=== PATIENT | male | born 1950 | race Caucasian/White ===

== ENCOUNTER → 2020-01-21 | Outpatient (CLI) | payer MEDICARE, OTHER ==
--- NOTE | 2020-01-21 12:03 | XR ---
EXAMINATION TYPE: XR Hip Complete RT DATE OF EXAM: 01/21/2020 COMPARISON: NONE HISTORY: Pain TECHNIQUE: 2 views submitted FINDINGS: Exam limited by extensive overlying artifact. There is no evidence of erosive change or acute fracture. Diffuse osteopenia. Soft tissue artifact on the frontal view is suspected rather than sclerotic change involving the proximal femur. A concentri c narrowing of the hip joint with hypertrophic change of the acetabulum. IMPRESSION: 1. Limited exam demonstrates no gross evidence of acute fracture or dislocation. No destructive freire es seen to suggest osteomyelitis. 2. Diffuse osteopenia. 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
[2020-01-21 20:14] LABS: C Reactive Protein <0.4 mg/dL (0.0-0.8)
== END | disposition home or self-care (01) ==
LOC: LABWHC1 10:29
PROVIDERS: ATTEND Family Medicine
DX: L89.313 Pressure ulcer of right buttock, stage 3 (principal); G82.21 Paraplegia, complete; M85.80 Other specified disorders of bone density and structure, unspecified site
CPT/HCPCS: 36415; 73502; 84134; 85652; 86140

== ENCOUNTER 2020-03-28 20:02 | Emergency (ER) | payer MEDICARE, OTHER ==
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
[2020-03-28 20:45] LABS: Basophils % (A) 1 %; Eosinophils # (A) 0.2 k/uL (0-0.7); Eosinophils % (A) 3 %; HCT 47.8 % (39.0-53.0); HGB 15.2 gm/dL (13.0-17.5); Lymphocytes # (A) 1.1 k/uL (1.0-4.8); Lymphocytes % (A) 24 %; MCH 30.1 pg (25.0-35.0); MCHC 31.8 g/dL (31.0-37.0); MCV 94.7 fL (80.0-100.0); Monocytes # (A) 0.5 k/uL (0-1.0); Monocytes % (A) 11 %; Neutrophils # (A) 2.7 k/uL (1.3-7.7); Neutrophils % (A) 58 %; Platelet Count 226 k/uL (150-450); RBC 5.05 m/uL (4.30-5.90); RDW 14.4 % (11.5-15.5); WBC 4.6 k/uL (3.8-10.6)
[2020-03-28 20:48] LABS: ALT 13 U/L (4-49); AST 32 U/L (17-59); African American GFR (CKD) >90 (>60 ml/min/1.73 sqM); Albumin 3.8 g/dL (3.5-5.0); Alkaline Phosphatase 83 U/L (38-126); Anion Gap 7 mmol/L; Blood Urea Nitrogen 18 mg/dL (9-20); Calcium 8.9 mg/dL (8.4-10.2); Carbon Dioxide 24 mmol/L (22-30); Chloride 108 mmol/L (98-107); Glucose 103 mg/dL (74-99); Non-African American GFR(CKD) >90 (>60 ml/min/1.73 sqM); Sodium 139 mmol/L (137-145); Total Bilirubin 0.4 mg/dL (0.2-1.3); Total Protein 6.7 g/dL (6.3-8.2)
[2020-03-28 20:53] LABS: Potassium 4.5 mmol/L (3.5-5.1)
[2020-03-28 22:32] VITALS: BP 131/98; PULSE 87; RESP 18; TEMP 98.1
== END 2020-03-28 22:32 | disposition home or self-care (01) ==
LOC: EC 20:02
DX: L89.319 Pressure ulcer of right buttock, unspecified stage (principal); L89.219 Pressure ulcer of right hip, unspecified stage; Z87.891 Personal history of nicotine dependence; G82.20 Paraplegia, unspecified; Z87.828 Personal history of other (healed) physical injury and trauma
CPT/HCPCS: 36415; 80053; 85025; 99283

== ENCOUNTER 2020-08-28 21:52 | Emergency (ER) | payer MEDICARE, OTHER ==
[2020-08-28] MEDS ORDERED: PIPERACILLIN-TAZOBACTAM 3.375 GM in SODIUM CHLORIDE 0.9% 100 ML IVPB STA (22:04)
[2020-08-28] MEDS ORDERED: SODIUM CHLORIDE 0.9% 1,000 ML IV ONE (22:16)
[2020-08-28] MEDS ORDERED: SODIUM CHLORIDE 0.9% 1,000 ML IV SCH (22:30)
[2020-08-28 22:46] VITALS: RESP 18
[2020-08-28 23:07] LABS: Basophils % (A) 0 %; Eosinophils # (A) 0.1 k/uL (0-0.7); Eosinophils % (A) 1 %; HCT 46.4 % (39.0-53.0); HGB 15.3 gm/dL (13.0-17.5); Lymphocytes # (A) 1.7 k/uL (1.0-4.8); Lymphocytes % (A) 16 %; MCH 30.5 pg (25.0-35.0); MCHC 32.9 g/dL (31.0-37.0); MCV 92.6 fL (80.0-100.0); Mean Platelet Volume 7.4; Monocytes # (A) 0.6 k/uL (0-1.0); Monocytes % (A) 6 %; Neutrophils # (A) 7.9 k/uL (1.3-7.7); Neutrophils % (A) 75 %; Platelet Count 253 k/uL (150-450); RBC 5.01 m/uL (4.30-5.90); RDW 13.2 % (11.5-15.5); WBC 10.5 k/uL (3.8-10.6)
[2020-08-28 23:08] VITALS: BP 128/82; PULSE 75; TEMP 98.7
[2020-08-28 23:20] LABS: ALT 20 U/L (4-49); AST 32 U/L (17-59); African American GFR (CKD) >90 (>60 ml/min/1.73 sqM); Albumin 3.7 g/dL (3.5-5.0); Alkaline Phosphatase 94 U/L (38-126); Anion Gap 10 mmol/L; Blood Urea Nitrogen 17 mg/dL (9-20); Calcium 9.1 mg/dL (8.4-10.2); Carbon Dioxide 22 mmol/L (22-30); Chloride 105 mmol/L (98-107); Glucose 102 mg/dL (74-99); Non-African American GFR(CKD) >90 (>60 ml/min/1.73 sqM); Potassium 4.2 mmol/L (3.5-5.1); Sodium 137 mmol/L (137-145); Total Bilirubin 0.5 mg/dL (0.2-1.3); Total Protein 6.7 g/dL (6.3-8.2)
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
== END 2020-08-29 00:11 | disposition home or self-care (01) ==
LOC: EC 21:52
DX: L03.115 Cellulitis of right lower limb (principal); Z87.891 Personal history of nicotine dependence
CPT/HCPCS: 36415; 80053; 83605; 85025; 87040; 99283; 96365; 96361; J2543

== ENCOUNTER → 2020-09-11 | Outpatient (CLI) | payer MEDICARE, OTHER ==
--- NOTE | 2020-09-12 07:31 | MR ---
EXAMINATION TYPE: MR shoulder RT wo con DATE OF EXAM: 09/11/2020 COMPARISON: None. HISTORY: Rt shoulder pain, impingement, rotator cuff tendinitis, decreased range of motion, possible rotator cuff tear. TECHNIQUE: Multiplanar, multisequence imaging of the right shoulder is performed without contrast. FINDINGS: Rotator Cuff: Complete full-thickness retracted tears of the supraspinatus and infraspinatus tendons to level of acromioclavicular joint. There is moderate generalized fat replaced atrophy of the muscle bulk. Subscapularis tendon is thickened with increased signal with some partial tearing of distal fi bers. [id number] generalized atrophy of muscle bulk. Acromioclavicular Joint: Moderate to severe narrowing with mild to moderate spurring and [id number]-[id number] rate superior capsular hypertrophy. Glenohumeral Joint: High riding humeral head with moderate superior narrowing. Small inferior spurrin g. Small joint effusion. Labrum: The superior labrum has irregular increased signal, suspected tear. Biceps Tendon: The long head of biceps is in normal location within bicipital groove. Intracapsular p ortions difficult to visualize in entirety. Bone marrow signal: No focal abnormal marrow signal is appreciated. Other: No additional significant abnormality is appreciated. IMPRESSION: Full-thickness retracted tears of the supraspinatus and infraspinatus tendons. High ridin g humeral head suggesting underlying instability. Fairly moderate muscular atrophy suggests subacute or chronic in age. There is partial tearing of the distal subscapularis tendon with muscular atrophy.
== END | disposition home or self-care (01) ==
LOC: RADMRIMAIN 10:49
PROVIDERS: ATTEND Orthopaedic Surgery Sports Medicine
DX: M75.121 Complete rotator cuff tear or rupture of right shoulder, not specified as traumatic (principal); M62.50 Muscle wasting and atrophy, not elsewhere classified, unspecified site; M25.511 Pain in right shoulder; M75.41 Impingement syndrome of right shoulder

== ENCOUNTER → 2020-10-10 | Outpatient (CLI) | payer MEDICARE, OTHER ==
--- NOTE | 2020-10-12 12:36 | MR ---
MR pelvis without and with contrast HISTORY: Pressure ulcer Multiplanar multisequence and postcontrast images obtained through the pelvis following 7.[address] IV Abnormal signal noted in the inferior right gluteal region, intermediate on T1, increased and T2-weig hted sequences extending into the deep soft tissues to the level of the ischial tuberosity on the rig ht and posterior greater trochanter region, focal skin defect is noted posterior to the greater troch anter. The underlying bone marrow signal is maintained. No abnormal fluid collection. Osteophytic change is present in the right hip. The left elbow is shows distortion, effusion, remodel ing, abnormal thickening of the ileum. Osteoarthritic changes are present. Proximal left femur appare ntly discontinuous IMPRESSION: Decubitus ulcer shows no underlying osteomyelitis or abscess. There is distortion of the left hemipelvis and left proximal lower extremity, correlate for appropriate history, abnormal left f emur, consider correlation with plain film
== END | disposition home or self-care (01) ==
LOC: RADMRIMAIN 07:54
PROVIDERS: ATTEND Nurse Practitioner Family
DX: L89.312 Pressure ulcer of right buttock, stage 2 (principal); G82.20 Paraplegia, unspecified; R10.2 Pelvic and perineal pain
CPT/HCPCS: 72197; A9585

== ENCOUNTER 2021-04-02 12:21 | Inpatient (IN) | payer MEDICARE, OTHER ==
[2021-04-02] MEDS ORDERED: SODIUM CHLORIDE 0.9% 500 ML 250 ML IV STA (13:40)
[2021-04-02] MEDS ORDERED: SODIUM CHLORIDE 0.9% 2,000 ML IV STA (13:40)
[2021-04-02] MEDS ORDERED: cefTRIAXone IN SWFI 1,000 MG/10 ML SYRINGE IVP STA (13:40)
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
[2021-04-02 14:12] LABS: Basophils % (A) 0 %; Eosinophils # (A) 0.1 k/uL (0-0.7); Eosinophils % (A) 1 %; HCT 47.4 % (39.0-53.0); HGB 15.2 gm/dL (13.0-17.5); Lymphocytes # (A) 0.9 k/uL (1.0-4.8); Lymphocytes % (A) 7 %; MCH 29.7 pg (25.0-35.0); MCV 92.7 fL (80.0-100.0); Mean Platelet Volume 7.8; Monocytes # (A) 0.6 k/uL (0-1.0); Monocytes % (A) 4 %; Neutrophils # (A) 11.6 k/uL (1.3-7.7); Neutrophils % (A) 88 %; Platelet Count 270 k/uL (150-450); RBC 5.12 m/uL (4.30-5.90); RDW 14.3 % (11.5-15.5); WBC 13.2 k/uL (3.8-10.6)
[2021-04-02 14:44] LABS: ALT 21 U/L (4-49); AST 32 U/L (17-59); African American GFR (CKD) >90 (>60 ml/min/1.73 sqM); Albumin 4.1 g/dL (3.5-5.0); Alkaline Phosphatase 102 U/L (38-126); Anion Gap 8 mmol/L; Blood Urea Nitrogen 18 mg/dL (9-20); C Reactive Protein 4.1 mg/dL (<1.0); Calcium 9.1 mg/dL (8.4-10.2); Carbon Dioxide 24 mmol/L (22-30); Chloride 104 mmol/L (98-107); Glucose 93 mg/dL (74-99); Non-African American GFR(CKD) >90 (>60 ml/min/1.73 sqM); Potassium 3.9 mmol/L (3.5-5.1); Sodium 136 mmol/L (137-145); Total Bilirubin 0.9 mg/dL (0.2-1.3); Total Protein 7.2 g/dL (6.3-8.2)
[2021-04-02] MEDS ORDERED: NALOXONE 0.4 MG/ML 1 ML VIAL IV PRN (15:49)
[2021-04-02] MEDS ORDERED: ALPRAZolam 0.25 MG TAB PO PRN (19:21)
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
[2021-04-02] MEDS: ALPRAZolam 0.25 MG TAB PO PRN (21:12)
[2021-04-02] MEDS: SODIUM CHLORIDE 0.9% 1,000 ML IV SCH (21:13)
[2021-04-03] MEDS ORDERED: VANCOMYCIN IV PER PHARMACY 1 EACH MISC MISCELLANE PRN (00:29)
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
[2021-04-03] MEDS ORDERED: VANCOMYCIN 1,500 MG in SODIUM CHLORIDE 0.9% 250 ML IVPB ONE (01:00)
[2021-04-03 01:25] LABS: Appearance,Urine Clear (Clear); Bilirubin,Urine Negative (Negative); Blood,Urine Negative (Negative); Color,Urine Yellow; Glucose,Urine (UA) Negative (Negative); Ketones,Urine Negative (Negative); Leukocyte Esterase,Urine Moderate (Negative); Mucus,Urine Rare /hpf; Nitrite,Urine Negative (Negative); PH, Urine 5.5 (5.0-8.0); Protein,Urine Negative (Negative); RBC,Urine 2 /hpf (0-5); Specific Gravity,Urine 1.018 (1.001-1.035); Squamous Epithelial Cell,Urine <1 /hpf (0-4); Urobilinogen,Urine <2.0 mg/dL (<2.0); WBC,Urine 21 /hpf (0-5)
[2021-04-03 06:56] LABS: Basophils % (A) 0 %; Eosinophils % (A) 0 %; HCT 40.5 % (39.0-53.0); HGB 13.1 gm/dL (13.0-17.5); Lymphocytes % (A) 10 %; MCH 29.7 pg (25.0-35.0); MCHC 32.3 g/dL (31.0-37.0); Mean Platelet Volume 7.3; Monocytes # (A) 0.5 k/uL (0-1.0); Monocytes % (A) 6 %; Neutrophils # (A) 8.2 k/uL (1.3-7.7); Neutrophils % (A) 82 %; Platelet Count 219 k/uL (150-450); RDW 14.7 % (11.5-15.5)
[2021-04-03] MEDS ORDERED: NON FORMULARY DRUG (Juven Packet 1 PACKET Packet) PO SCH (07:30)
[2021-04-03 07:50] LABS: African American GFR (CKD) >90 (>60 ml/min/1.73 sqM); Anion Gap 6 mmol/L; Blood Urea Nitrogen 10 mg/dL (9-20); Calcium 8.3 mg/dL (8.4-10.2); Carbon Dioxide 23 mmol/L (22-30); Chloride 108 mmol/L (98-107); Glucose 107 mg/dL (74-99); Non-African American GFR(CKD) >90 (>60 ml/min/1.73 sqM); Potassium 3.7 mmol/L (3.5-5.1); Sodium 137 mmol/L (137-145)
[2021-04-03] MEDS: SODIUM CHLORIDE 0.9% 1,000 ML IV SCH ×2 (08:05→20:25)
[2021-04-03] MEDS: MULTIVITAMINS, THERA 1 EACH TAB PO SCH (08:09)
[2021-04-03] MEDS: SYMBICORT 80-4.5 MCG INHALER INHALATION SCH (09:29)
[2021-04-03] MEDS: VANCOMYCIN 1,250 MG in SODIUM CHLORIDE 0.9% 250 ML IVPB SCH ×2 (10:03→18:11)
[2021-04-03 11:12] VITALS: BMI 21.4
[2021-04-03] MEDS: CEFEPIME 2 GM in SODIUM CHLORIDE 0.9% 100 ML IVPB SCH ×2 (16:35→22:53)
--- NOTE | 2021-04-03 17:07 | PN ---
PROGRESS NOTE DATE OF SERVICE: 04/03/2021 REASON FOR FOLLOWUP: Left gluteal cellulitis. INTERVAL HISTORY: The patient is afebrile. She is breathing comfortably. No sensation down to the gluteal area. Has no pain. No chest pain, shortness of breath or cough. No abdominal pain or diarrhea. PHYSICAL EXAMINATION: Blood pressure 108/67, pulse of 82, temperature is 97.9. He is 98% on room air. GENERAL DESCRIPTION: General description is an elderly male lying in bed in no distress. RESPIRATORY SYSTEM: Unlabored breathing. Clear to auscultation anteriorly. HEART: S1, S2. Regular rate and rhythm. ABDOMEN: Soft. No tenderness. Left gluteal area swelling and redness have slightly increased compared to yesterday. LABS: Hemoglobin is 13.8, white count 10.0, BUN of 10, creatinine 0.52. Blood culture negative. Culture so far pending. DIAGNOSTIC IMPRESSION AND PLAN: Patient with left gluteal cellulitis and concern for possible related to Gram-positive skin char. White count improved. Slightly was noticed. Area will be marked. Cefepime will be added and antibiotic adjusted based on clinical response and culture. Continue supportive care. MMODL / IJN: [id number] /
[2021-04-03] MEDS: ACETAMINOPHEN TAB 325 MG TAB PO PRN (17:19)
[2021-04-03] MEDS ORDERED: LORazepam 2 MG/ML INJ IV STA (17:30)
--- NOTE | 2021-04-03 19:33 | PN ---
PROGRESS NOTE DATE OF SERVICE: 04/03/2021 This 70-year-old gentleman, admitted with a left gluteal decubitus ulcer and possible abscess, also had an episode of tremors, shaking chills and features of sepsis. The patient was started on broad-spectrum IV antibiotics. White count was elevated to 13.2 yesterday. Hematology is following the patient closely. Past medical history reviewed. REVIEW OF SYSTEMS: CARDIOVASCULAR SYSTEM: No angina. RESPIRATION: As mentioned earlier. GI: As mentioned earlier. : No dysuria. NERVOUS SYSTEM: Unchanged. CURRENT MEDICATIONS: Reviewed. They include Tylenol, Xanax, Symbicort, cefepime, multivitamins, Narcan, vancomycin. PHYSICAL EXAMINATION: Patient is alert, oriented x3. Pulse 82, blood pressure 108/67, respirations 17, temperature 97.8, pulse ox 88% on room air. Temperature is 100.8. HEENT: Conjunctivae normal. Oral mucosa moist. NECK: No jugular venous distention. No carotid bruit. No lymph node enlargement. CARDIOVASCULAR: S1, S2 muffled. RESPIRATION: Breath sounds diminished at the bases. A few scattered rhonchi. ABDOMEN: Soft, non-tender. LEGS: No edema. No swelling. Right buttock ulcer and edema and swelling also present. NERVOUS SYSTEM: T3-4 paraplegia. ASSESSMENT: 1. Acute left gluteal decubitus ulcer and cellulitis, grade 1-2, with possible subcutaneous abscess, failure of outpatient treatment, sepsis, present on admission. 2. Increased white count. 3. Previous decubitus. 4. Hyponatremia. 5. History of T3-4 paraplegia. 6. History of chronic decubitus ulcer. 7. History of bowel resection. 8. History of nicotine dependence. 9. Increased CRP. 10.FULL CODE. RECOMMENDATIONS AND DISCUSSION: In this 70-year-old gentleman who presented with multiple complex medical issues, we will monitor the patient closely, continue the current medications, continue symptomatic treatment. We will obtain another set of cultures. Continue the antibiotics. Surgical evaluation for possible incision and drainage. Guarded prognosis. Further recommendations to follow. Obtain urine culture also. Lactic acid also has been sought. See orders for further details. The prognosis is extremely guarded because of multiple complex medical issues. MMODL / IJN: [id number] /
[2021-04-04] MEDS: VANCOMYCIN 1,250 MG in SODIUM CHLORIDE 0.9% 250 ML IVPB SCH ×2 (02:54→10:03)
[2021-04-04] MEDS: SYMBICORT 80-4.5 MCG INHALER INHALATION SCH (07:42)
[2021-04-04] MEDS: MULTIVITAMINS, THERA 1 EACH TAB PO SCH (08:32)
[2021-04-04] MEDS: CEFEPIME 2 GM in SODIUM CHLORIDE 0.9% 100 ML IVPB SCH ×2 (08:32→15:26)
[2021-04-04] MEDS: SODIUM CHLORIDE 0.9% 1,000 ML IV SCH (08:32)
[2021-04-04] MEDS: ACETAMINOPHEN TAB 325 MG TAB PO PRN ×3 (08:35→22:24)
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
[2021-04-04] MEDS ORDERED: IOPAMIDOL CONTRAST (ORAL USE) VIAL PO PRN (17:26)
[2021-04-04] MEDS: VANCOMYCIN 1,500 MG in SODIUM CHLORIDE 0.9% 250 ML IVPB SCH (17:42)
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
--- NOTE | 2021-04-04 18:59 | PN ---
PROGRESS NOTE DATE OF SERVICE: 04/04/2021 This 70-year-old gentleman who was admitted with acute left gluteal cellulitis and abscess, had features of sepsis. The patient had significant shaking shivers yesterday. The patient also had MRSA infection from the culture. No chest pain. No palpitations. No fever. PHYSICAL EXAMINATION: Alert and oriented times three. Pulse 66, blood pressure 127/58. Respirations 17. Temperature 97.9, pulse ox 94% on room air. HEENT: Conjunctivae normal. NECK: No JVD. CARDIOVASCULAR: S1, S2 muffled. LUNGS: Breath sounds diminished in the bases. Scattered rhonchi and crackles. ABDOMEN: Soft. Nontender. LEGS are no edema. No swelling. NERVOUS SYSTEM: No focal deficits. LABORATORY DATA: CBC within normal limits. Sodium 130. Potassium 3.7. C-reactive protein 16. ASSESSMENT: 1. Acute left gluteal decubitus ulcer and cellulitis grade 1-2 with possible subcutaneous abscess with sinus, failure of outpatient treatment, sepsis, present on admission with MRSA. 2. Increased WBC. 3. Previous decubitus. 4. Hyponatremia. 5. History of T3, T4 paraplegia. 6. History of chronic decubitus ulcer. 7. History of bowel resection. 8. History of nicotine dependence. 9. Increased CRP. 10.FULL CODE. RECOMMENDATIONS AND DISCUSSION: I recommend to continue current medications, management and symptomatic treatment. I recommend continue the current medications. Continue the antibiotics. Surgical evaluation noted. I would also recommend CT abdomen and pelvis also. Closely follow with Infectious Disease. The patient is on cefepime and vancomycin at this time. Further recommendations to follow. MMODL / IJN: [id number] /
--- NOTE | 2021-04-04 23:38 | PN ---
PROGRESS NOTE DATE OF SERVICE: 04/04/2021 REASON FOR FOLLOWUP: Left gluteal cellulitis and wound infection. INTERVAL HISTORY: The patient is afebrile. The patient is breathing comfortably. Denies any chest pain. No shortness of breath. No abdominal pain. lower gluteal area has no pain. PHYSICAL EXAMINATION: Blood pressure 113/68 with a pulse of 77, temperature 98.2. She is 97% on room air. General description is an elderly male lying in bed in no distress. Respiratory system: Unlabored breathing, clear to auscultation anteriorly. Heart S1, S2. Regular rate and rhythm. Abdomen soft, no tenderness. Left gluteal area swelling and redness has slightly decreased. LABS: Wound culture showing presumptive MRSA. DIAGNOSTIC IMPRESSION AND PLAN: Patient with left gluteal cellulitis secondary to MRSA with concern for worsening cellulitis. CT was obtained which did not show any drainable abscess. Patient at this time to continue with vancomycin and discontinue cefepime and monitor clinical course closely. MMODL / IJN: [id number] /
[2021-04-05] MEDS: SODIUM CHLORIDE 0.9% 1,000 ML IV SCH ×2 (01:26→17:41)
[2021-04-05] MEDS: VANCOMYCIN 1,500 MG in SODIUM CHLORIDE 0.9% 250 ML IVPB SCH ×3 (01:27→17:41)
[2021-04-05 05:58] LABS: Basophils % (A) 0 %; Eosinophils # (A) 0.2 k/uL (0-0.7); Eosinophils % (A) 2 %; HCT 38.7 % (39.0-53.0); HGB 12.9 gm/dL (13.0-17.5); Lymphocytes % (A) 12 %; MCH 30.3 pg (25.0-35.0); MCHC 33.3 g/dL (31.0-37.0); Mean Platelet Volume 8.2; Monocytes # (A) 0.4 k/uL (0-1.0); Monocytes % (A) 5 %; Neutrophils # (A) 6.7 k/uL (1.3-7.7); Neutrophils % (A) 80 %; Platelet Count 233 k/uL (150-450); RBC 4.25 m/uL (4.30-5.90); RDW 14.7 % (11.5-15.5); WBC 8.4 k/uL (3.8-10.6)
[2021-04-05 06:22] LABS: African American GFR (CKD) >90 (>60 ml/min/1.73 sqM); Anion Gap 8 mmol/L; Blood Urea Nitrogen 10 mg/dL (9-20); Calcium 8.2 mg/dL (8.4-10.2); Carbon Dioxide 22 mmol/L (22-30); Chloride 110 mmol/L (98-107); Glucose 97 mg/dL (74-99); Non-African American GFR(CKD) >90 (>60 ml/min/1.73 sqM); Potassium 3.9 mmol/L (3.5-5.1); Sodium 140 mmol/L (137-145)
[2021-04-05] MEDS: SYMBICORT 80-4.5 MCG INHALER INHALATION SCH (07:30)
[2021-04-05] MEDS: MULTIVITAMINS, THERA 1 EACH TAB PO SCH (09:24)
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
--- NOTE | 2021-04-05 14:59 | P.PN ---
Subjective Progress Note Date: 04/05/21 CHIEF COMPLAINT: Pressure ulcer left buttocks HISTORY OF PRESENT ILLNESS: Left buttocks ulcer. Improving with antibiotics. Patient is paraplegic. Does not have pain sensation. Cultures are positive for MRSA. Computed tomography scan had no drainable fluid. WBC is 8.4 patient tolerating regular diet. Afebrile. PHYSICAL EXAM: VITAL SIGNS: Reviewed. GENERAL: Well-developed in no acute distress. HEENT: No sclera icterus. Extraocular movements grossly intact. Moist buccal mucosa. Head is atraumatic, normocephalic. ABDOMEN: Soft. Nondistended. Nontender. NEUROLOGIC: Alert and oriented. Cranial nerves II through XII grossly intact. Skin: Left buttocks ulceration or erythema around ulcer is decreasing. No area of induration or fluctuation. Minimal drainage on dressing ASSESSMENT: 1. Infected left buttocks decubitus ulcer PLAN: -No surgical intervention planned -Continue local wound care per wound care nurse practitioner -Continue antibiotics per ID -Continue supportive care Physician Sales Ledger Administrator note has been reviewed by physician. Signing provider agrees with the documented findings, assessment, and plan of care. Objective - Vital Signs Vital signs: Vital Signs Temp 97.9 F 04/05/21 12:55 Pulse 66 04/05/21 12:55 Resp 15 04/05/21 12:55 BP 118/60 04/05/21 12:55 Pulse Ox 96 04/05/21 12:55 Intake & Output 04/04/21 04/05/21 04/05/21 18:59 06:59 18:59 Intake Total 350 Output Total 400 Balance -50 Intake: Intake, IV Titration 350 Amount Cefepime 2 gm In Sodium 100 Chloride 0.9% 100 ml @ 25 mls/hr IVPB Q8HR [facility] Rx# :[id number] Vancomycin 1,500 mg In 250 Sodium Chloride 0.9% 250 ml @ 125 mls/hr IVPB Q8H [facility] Rx#:[id number] Output: Urine 400 Other: Voiding Method Self-Catheterization Self-Catheterization Self-Catheterization # Voids 6 - Labs CBC & Chem 7: 04/05/21 05:05 04/05/21 05:05 Labs: Abnormal Lab Results - Last 24 Hours (Table) 04/05/21 04/05/21 Range/Units 05:05 05:05 RBC 4.25 L (4.30-5.90) m/uL Hgb 12.9 L (13.0-17.5) gm/dL Hct 38.7 L (39.0-53.0) % Chloride 110 H (98-107) mmol/L Creatinine 0.38 L (0.66-1.25) mg/dL Calcium 8.2 L (8.4-10.2) mg/dL Microbiology - Last 24 Hours (Table) 04/02/21 18:00 Gram Stain - Final Buttock Wound Culture - Final Methicillin resist S. aureus 04/03/21 18:43 Blood Culture - Preliminary Blood No Growth after 24 hours 04/03/21 18:43 Blood Culture - Preliminary Blood No Growth after 24 hours 04/02/21 13:40 Blood Culture - Preliminary Blood No Growth after 48 hours 04/02/21 13:53 Blood Culture - Preliminary Blood No Growth after 48 hours
[2021-04-05] MEDS: COLLAGENASE 250 UNIT/GM OINTMENT 30 GM TUBE TOPICAL SCH (16:22)
--- NOTE | 2021-04-05 19:45 | PN ---
PROGRESS NOTE DATE OF SERVICE: 04/05/2021 This 70-year-old gentleman who was admitted with acute left gluteal decubitus, also secondary MRSA, has significant dermal thickening and pain and cellulitis also. There is no history of any drainable abscess in the CT scan. No evidence of. No chest pain. No palpitations. No fever. PHYSICAL EXAMINATION: Alert and oriented x3. Pulse 66, blood pressure 118/60, respiration 15, temperature 97.2, pulse ox 98% on room air. HEENT: Conjunctivae normal. Oral mucosa moist. NECK: No jugular venous distention. No lymph node enlargement. CARDIOVASCULAR: S1, S2, muffled. No S3, no S4, RESPIRATORY: Diminished breath sounds at the bases. No rhonchi, no crackles. ABDOMEN: Soft, nontender. LEGS: Paraplegia present. Otherwise, left gluteal area significant erythema. No tenderness or induration present. LABS: WBC 8.2, hemoglobin 12.9. Cultures are MRSA. ASSESSMENT: 1. Acute left gluteal decubitus ulcer with cellulitis, grade 1-2 with possible subcutaneous edema with no evidence of a drainable abscess with secondary to MRSA with possible sepsis present on admission. 2. Increased WBC. 3. Previous decubitus ulcers. 4. Hyponatremia. 5. History of T3, T4 paraplegia. 6. History of chronic decubitus ulcer. 7. History of bowel resection. 8. History of nicotine dependence. 9. Increased CRP. 10.FULL CODE. RECOMMENDATIONS: Recommend to continue current medications, continue symptomatic treatment. Continue the antibiotics. Continue local wound care. Guarded prognosis because of multiple complex medical issues. Will follow closely with Dr. Wood. Prognosis guarded. Discussed with the patient who understands. Further recommendations to follow. MMODL / IJN: [id number] / MTDD
[2021-04-06] MEDS: VANCOMYCIN 1,500 MG in SODIUM CHLORIDE 0.9% 250 ML IVPB SCH ×3 (01:46→21:21)
[2021-04-06] MEDS: SODIUM CHLORIDE 0.9% 1,000 ML IV SCH ×2 (01:48→14:25)
--- NOTE | 2021-04-06 06:05 | PN ---
PROGRESS NOTE DATE OF SERVICE: 04/05/2021 REASON FOR FOLLOWUP: Left gluteal abscess cellulitis. INTERVAL HISTORY: Patient is afebrile. The patient is breathing comfortably. Denies having any chest pain, shortness of breath or cough. No abdominal pain. No diarrhea. PHYSICAL EXAMINATION: Blood pressure is 133/70, pulse of 80, temperature is 97. He is 95% on room air. General description is an elderly male lying in bed in no distress. Respiratory system: Unlabored breathing. Clear to auscultation anteriorly. Heart S1, S2. Regular rate and rhythm. Abdomen soft, no tenderness. Left gluteal swelling and redness has slightly decreased. LABS: Hemoglobin is 12.1, white count 8.4, BUN of 10, creatinine 0.38. DIAGNOSTIC IMPRESSION AND PLAN: Patient with left gluteal abscess cellulitis for which the patient is covered with vancomycin in view of the extensive infection he will need a PICC line for outpatient IV antibiotic therapy. This was communicated to the chef kitchen manager and continue supportive care. MMODL / IJN: [id number] /
[2021-04-06] MEDS: SYMBICORT 80-4.5 MCG INHALER INHALATION SCH (07:14)
[2021-04-06] MEDS ORDERED: VANCOMYCIN TROUGH DUE 1 EACH MISC MISCELLANE ONE (09:00)
[2021-04-06] MEDS: MULTIVITAMINS, THERA 1 EACH TAB PO SCH (09:10)
--- NOTE | 2021-04-06 14:57 | P.PN ---
Subjective Progress Note Date: 04/06/21 CHIEF COMPLAINT: Pressure ulcer left buttocks HISTORY OF PRESENT ILLNESS: Left buttocks ulcer is improving with antibiotics. Patient is paraplegic. Does not have pain sensation. Cultures are positive for MRSA. Computed tomography scan had no drainable fluid. WBC is 8.4 patient tolerating regular diet. Afebrile. PHYSICAL EXAM: VITAL SIGNS: Reviewed. GENERAL: Well-developed in no acute distress. HEENT: No sclera icterus. Extraocular movements grossly intact. Moist buccal mucosa. Head is atraumatic, normocephalic. ABDOMEN: Soft. Nondistended. Nontender. NEUROLOGIC: Alert and oriented. Cranial nerves II through XII grossly intact. Skin: Left buttocks ulceration or erythema around ulcer is decreasing. No area of induration or fluctuation. Minimal drainage on dressing ASSESSMENT: 1. Infected left buttocks decubitus ulcer improving with antibiotics PLAN: -No surgical intervention planned -Continue local wound care per wound care nurse practitioner -Continue antibiotics per ID -Continue supportive care Physician Cathodic Protection Technician note has been reviewed by physician. Signing provider agrees with the documented findings, assessment, and plan of care. Objective - Vital Signs Vital signs: Vital Signs Temp 97.6 F 04/06/21 12:24 Pulse 68 04/06/21 12:24 Resp 14 04/06/21 12:24 BP 117/66 04/06/21 12:24 Pulse Ox 96 04/06/21 12:24 Intake & Output 04/05/21 04/06/21 04/06/21 18:59 06:59 18:59 Intake Total 590 Output Total 1500 900 900 Balance -1500 -310 -900 Weight 75.75 kg Intake: Oral 590 Output: Urine 1500 900 900 Other: Voiding Method Self-Catheterization Self-Catheterization Self-Catheterization # Voids 1 - Labs CBC & Chem 7: 04/05/21 05:05 04/05/21 05:05 Labs: Microbiology - Last 24 Hours (Table) 04/03/21 18:43 Blood Culture - Preliminary Blood No Growth after 48 hours 04/03/21 18:43 Blood Culture - Preliminary Blood No Growth after 48 hours 04/02/21 13:53 Blood Culture - Preliminary Blood No Growth after 72 hours 04/02/21 13:40 Blood Culture - Preliminary Blood No Growth after 72 hours
[2021-04-06] MEDS: COLLAGENASE 250 UNIT/GM OINTMENT 30 GM TUBE TOPICAL SCH (15:29)
--- NOTE | 2021-04-06 15:38 | P.PN ---
Subjective Progress Note Date: 04/06/21 This is a 70-year-old male who was recently admitted with acute left gluteal decubitus ulcer also significant dermal thickening and surrounding cellulitis with pain and is being closely monitored. General surgery and infectious disease following. Cultures are showing MRSA and patient is maintained on IV antibiotics in the form of vancomycin and will continue. Patient is scheduled to receive a PICC line and will need outpatient IV antibiotic therapy. Case management following and working on discharge planning needs. Creatinine stable and Vanco trough is 24.9. Patient is afebrile. Review of systems: Constitutional: No reports of fatigue, fever, or chills Cardiovascular: No reports of chest pain or palpitations Respiratory: No reports of shortness of breath or cough GI: No reports of nausea, vomiting, or diarrhea : No reports of dysuria or retention Neurovascular: No reports of weakness or numbness All medications have been reviewed Active Medications Acetaminophen (Acetaminophen Tab 325 Mg Tab) 650 mg PO Q6HR PRN PRN Reason: Fever and/ or Pain Last Admin: 04/04/21 22:24 Dose: 650 mg Documented by: Alprazolam (Alprazolam 0.25 Mg Tab) 0.125 - 0.25 mg PO HS PRN PRN Reason: Anxiety Last Admin: 04/02/21 21:12 Dose: 0.25 mg Documented by: Budesonide/Formoterol Fumarate (Symbicort 80-4.5 Mcg Inhaler) 2 puff INHALATION RT-DAILY [facility] Last Admin: 04/06/21 07:14 Dose: 2 puff Documented by: Collagenase (Collagenase 250 Unit/Gm Ointment 30 Gm Tube) 1 applic TOPICAL DAILY [facility]; Protocol Last Admin: 04/06/21 15:29 Dose: 1 applic Documented by: Sodium Chloride (Saline 0.9%) 1,000 mls @ 75 mls/hr IV .[id number] [facility] Last Admin: 04/06/21 14:25 Dose: Not Given Documented by: Vancomycin HCl 1,500 mg/ (Sodium Chloride) 250 mls @ 125 mls/hr IVPB Q12HR [facility] Multivitamins (Multivitamins, Thera 1 Each Tab) 1 each PO DAILY [facility] Last Admin: 04/06/21 09:10 Dose: 1 each Documented by: Naloxone HCl (Naloxone 0.4 Mg/Ml 1 Ml Vial) 0.2 mg IV Q2M PRN PRN Reason: Opioid Reversal Physical exam: Gen: This is a 70-year-old male awake, alert and oriented 3, well-developed, well-nourished. Temp is 98.9F, pulse is 82, respirations are 16, blood pressure is 107/64, oxygen saturation is 94% on room air. HEENT: Head is atraumatic, normocephalic. Pupils equal, round. Sclerae is anicteric. NECK: Supple. No JVD. No lymphadenopathy. No thyromegaly. LUNGS: Clear to auscultation. No wheezes or rhonchi. No intercostal retractions. HEART: Regular rate and rhythm. No murmur. ABDOMEN: Soft. Bowel sounds are present. No masses. No tenderness. EXTREMITIES: No pedal edema. No calf tenderness. NEUROLOGICAL: Patient is awake, alert and oriented x3. Cranial nerves 2 through 12 are grossly intact. Assessment: Acute left gluteal decubitus ulcer with cellulitis, grade 1-2 with possible subcutaneous edema with no evidence of a drainable abscess with secondary to MRSA with possible sepsis, present on admission Increased white blood count Previous decubitus ulcers Hyponatremia History of T3, T4 paraplegia History of chronic decubitus ulcer next line history of bowel resection history of nicotine dependence Increased CRP Full code Plan: Recommend continue with current medications, management, and symptomatic treatment. Patient is continued on IV antibiotics with infectious disease following closely. Wound care to continue and surgery is following as well. No plans for surgical intervention as CT shows no drainable abscess noted of the area. Will discuss with infectious disease and patient is planning to have PICC line placed and case management following and working on discharge planning needs. Due to multiple complex medical issues, prognosis is guarded. Objective - Vital Signs Vital signs: Vital Signs Temp 98.9 F 04/06/21 04:27 Pulse 82 04/06/21 04:27 Resp 16 04/06/21 04:27 BP 107/64 04/06/21 04:27 Pulse Ox 94 L 04/06/21 04:27 Intake & Output 04/05/21 04/06/21 04/06/21 18:59 06:59 18:59 Intake Total 590 Output Total 1500 900 200 Balance -1500 -310 -200 Intake: Oral 590 Output: Urine 1500 900 200 Other: Voiding Method Self-Catheterization Self-Catheterization # Voids 1 - Labs CBC & Chem 7: 04/05/21 05:05 04/05/21 05:05 Labs: Microbiology - Last 24 Hours (Table) 04/03/21 18:43 Blood Culture - Preliminary Blood No Growth after 48 hours 04/03/21 18:43 Blood Culture - Preliminary Blood No Growth after 48 hours 04/02/21 13:53 Blood Culture - Preliminary Blood No Growth after 72 hours 04/02/21 13:40 Blood Culture - Preliminary Blood No Growth after 72 hours 04/02/21 18:00 Gram Stain - Final Buttock Wound Culture - Final Methicillin resist S. aureus
--- NOTE | 2021-04-06 18:25 | PN ---
PROGRESS NOTE DATE OF SERVICE: 04/06/2021 REASON FOR FOLLOWUP: Left gluteal abscess cellulitis. INTERVAL HISTORY: Patient is afebrile. The patient is currently breathing comfortably. Denies having any chest pain or shortness of breath or cough. No abdominal pain. PHYSICAL EXAMINATION: Blood pressure 117/66, pulse of 68. Temperature is 97.6. He is 96% . General description is an elderly male lying in bed in no distress. Respiratory system: Unlabored breathing. Clear to auscultation anteriorly. Heart S1, S2. Regular rate and rhythm. Abdomen soft, no tenderness. Left gluteal area swelling and redness has slightly decreased. LABS: Vanco trough is elevated 24.9. Blood culture negative. DIAGNOSTIC IMPRESSION AND PLAN: Patient with left gluteal cellulitis concerning for abscess. CT did not show any abscess and plan is for a PICC line and at least two weeks of IV vancomycin. PICC line will be placed. Continue supportive care. MMODL / IJN: [id number] /
[2021-04-06] MEDS: ALPRAZolam 0.25 MG TAB PO PRN (21:23)
[2021-04-07] MEDS: SODIUM CHLORIDE 0.9% 1,000 ML IV SCH (04:44)
[2021-04-07 05:39] LABS: African American GFR (CKD) >90 (>60 ml/min/1.73 sqM); Non-African American GFR(CKD) >90 (>60 ml/min/1.73 sqM)
[2021-04-07] MEDS: VANCOMYCIN 1,500 MG in SODIUM CHLORIDE 0.9% 250 ML IVPB SCH (08:38)
[2021-04-07] MEDS: MULTIVITAMINS, THERA 1 EACH TAB PO SCH (08:39)
[2021-04-07] MEDS: SYMBICORT 80-4.5 MCG INHALER INHALATION SCH (08:42)
[2021-04-07 13:00] VITALS: BP 135/71; PULSE 58; RESP 17; TEMP 98.4
--- NOTE | 2021-04-07 13:31 | P.PN ---
Subjective Progress Note Date: 04/07/21 CHIEF COMPLAINT: Pressure ulcer left buttocks HISTORY OF PRESENT ILLNESS: Left buttocks ulcer is improving with antibiotics. Patient is paraplegic. Does not have pain sensation. Cultures are positive for MRSA. Computed tomography scan had no drainable fluid. Patient is scheduled for PICC line placement and possible discharge later today with home IV antibiotics. Afebrile. PHYSICAL EXAM: VITAL SIGNS: Reviewed. GENERAL: Well-developed in no acute distress. HEENT: No sclera icterus. Extraocular movements grossly intact. Moist buccal mucosa. Head is atraumatic, normocephalic. ABDOMEN: Soft. Nondistended. Nontender. NEUROLOGIC: Alert and oriented. Cranial nerves II through XII grossly intact. Skin: Left buttocks ulceration or erythema around ulcer is decreasing. No area of induration or fluctuation. ASSESSMENT: 1. Infected left buttocks decubitus ulcer improving with antibiotics PLAN: -Patient can be discharge from surgical standpoint -No surgical intervention planned -Continue local wound care per wound care nurse practitioner -Continue antibiotics per ID -Continue supportive care Physician Rn [facility] note has been reviewed by physician. Signing provider agrees with the documented findings, assessment, and plan of care. Objective - Vital Signs Vital signs: Vital Signs Temp 98.4 F 04/07/21 12:45 Pulse 58 L 04/07/21 12:45 Resp 17 04/07/21 12:45 BP 135/71 04/07/21 12:45 Pulse Ox 95 04/07/21 12:45 Intake & Output 04/06/21 04/07/21 04/07/21 18:59 06:59 18:59 Intake Total 850 Output Total 1300 Balance -1300 850 Weight 75.75 kg Intake: Intake, IV Titration 850 Amount Sodium Chloride 0.9% 1, 600 000 ml @ 75 mls/hr IV . [id number] [facility] Rx#:[id number] Vancomycin 1,500 mg In 250 Sodium Chloride 0.9% 250 ml @ 125 mls/hr IVPB Q12HR [facility] Rx#:[id number] Output: Urine 1300 Other: Voiding Method Self-Catheterization Self-Catheterization Self-Catheterization # Voids 1 - Labs CBC & Chem 7: 04/05/21 05:05 04/07/21 05:12 Labs: Abnormal Lab Results - Last 24 Hours (Table) 04/07/21 Range/Units 05:12 Creatinine 0.36 L (0.66-1.25) mg/dL Microbiology - Last 24 Hours (Table) 04/03/21 18:43 Blood Culture - Preliminary Blood No Growth after 72 hours 04/03/21 18:43 Blood Culture - Preliminary Blood No Growth after 72 hours 04/02/21 13:40 Blood Culture - Preliminary Blood No Growth after 96 hours 04/02/21 13:53 Blood Culture - Preliminary Blood No Growth after 96 hours
--- NOTE | 2021-04-07 15:09 | IR ---
EXAMINATION TYPE: IR cvc insert >=5 years DATE OF EXAM: 04/07/2021 COMPARISON: NONE CLINICAL HISTORY: Infection Needs long-term intravenous access for antibiotics. PROCEDURE: Hand hygiene obtained with soap and water and alcohol-based hand rub. After informed consent, the skin overlying the left brachial vein was localized with ultrasound and n oted to be compressible and patent. An ultrasound image was obtained and submitted on the patient's chart. The overlying skin was prepped and draped and Lidocaine was used for local anesthesia. A ski n maru was made with a scalpel. Access was gained to the vein under ultrasound guidance with a 21 ga uge needle and a 0.018 inch wire was advanced. Access site was dilated with Peel-Away sheath and cat heter tailored to the appropriate length and advanced such that the distal tip is at the cavoatrial j unction. Spot image was obtained verifying placement. Catheter was fixed to the skin and a sterile dressing was placed following hemostasis. Catheter was aspirated and flushed with saline. Patient w as discharged in stable condition without complication. Maximal barrier technique is utilized. Ultra sound image is documented on the chart. Ultrasound used with sterile technique. Fluoro time and fluoroscopic images submitted to document procedure: 243 intraoperative images docume nt the procedure, 0.2 minutes fluoroscopy time IMPRESSION: STATUS POST ULTRASOUND AND FLUOROSCOPIC GUIDED PICC LINE PLACEMENT, READY FOR USE. THIS PROCEDURE WAS PERFORMED BY THE UNDERSIGNED.
--- NOTE | 2021-04-07 15:25 | PN ---
PROGRESS NOTE DATE OF SERVICE: 04/07/2021 REASON FOR FOLLOWUP: Left gluteal abscess and cellulitis. INTERVAL HISTORY: The patient is afebrile. The patient is breathing comfortably. He denies having any chest pain, shortness of breath or cough. No abdominal pain. Does not have any sensation in the gluteal area; hence no pain. PHYSICAL EXAMINATION: Blood pressure 135/71, pulse of 50, temperature 98.4. He is 95% on room air. GENERAL DESCRIPTION: General description is an elderly male lying in bed in no distress. RESPIRATORY SYSTEM: Unlabored breathing. Clear to auscultation anteriorly. HEART: S1, S2. Regular rate and rhythm. ABDOMEN: Soft. No tenderness. Left gluteal area swelling and induration has decreased. No drainage. LABS: Creatinine is 0.36. DIAGNOSTIC IMPRESSION AND PLAN: Patient with left gluteal abscess and cellulitis no drainage. In view of the extensive infection, he will need a PICC line for outpatient IV antibiotics for 2 weeks and close outpatient followup. MMODL / IJN: [id number] /
[2021-04-08] MEDS ORDERED: VANCOMYCIN TROUGH DUE 1 EACH MISC MISCELLANE ONE (08:00)
== END 2021-04-07 17:27 | disposition home health service (06) | DRG 872 ==
LOC: EC 12:21 → 5NMEDONC 15:49
PROVIDERS: ADMIT Internal Medicine; ATTEND Internal Medicine
PROC: 02HV33Z Insertion of Infusion Device into Superior Vena Cava, Percutaneous Approach (ICD-10-PCS; principal; 2021-04-07 08:25)
DX: A41.9 Sepsis, unspecified organism (principal); E87.1 Hypo-osmolality and hyponatremia; G82.20 Paraplegia, unspecified; L02.31 Cutaneous abscess of buttock; L03.317 Cellulitis of buttock; B95.62 Methicillin resistant Staphylococcus aureus infection as the cause of diseases classified elsewhere; L89.152 Pressure ulcer of sacral region, stage 2; L89.312 Pressure ulcer of right buttock, stage 2; L98.412 Non-pressure chronic ulcer of buttock with fat layer exposed; Z79.01 Long term (current) use of anticoagulants; Z79.51 Long term (current) use of inhaled steroids; Z87.891 Personal history of nicotine dependence; Z90.49 Acquired absence of other specified parts of digestive tract
CPT/HCPCS: 36415; 36573; 74177; 80048; 80053; 80202; 81001; 82565; 83605; 85025; 85652; 86140; 87040; 87070; 87077; 87086; 87186; 87205; 87635; 94640; 96374; 99284

== ENCOUNTER 2021-07-02 08:13 | Inpatient (IN) | payer OTHER, MEDICARE ==
[2021-07-02] MEDS ORDERED: SODIUM CHLORIDE 0.9% 1,000 ML IV ONE (08:42)
[2021-07-02] MEDS ORDERED: VANCOMYCIN IV PER PHARMACY 1 EACH MISC MISCELLANE PRN (08:43)
[2021-07-02] MEDS ORDERED: cefTRIAXone IN SWFI 1,000 MG/10 ML SYRINGE IVP STA (08:43)
[2021-07-02] MEDS ORDERED: VANCOMYCIN 1,500 MG in SODIUM CHLORIDE 0.9% 250 ML IVPB ONE (09:00)
[2021-07-02] MEDS ORDERED: NALOXONE 0.4 MG/ML 1 ML VIAL IV PRN (09:13)
[2021-07-02] MEDS ORDERED: ACETAMINOPHEN TAB 325 MG TAB PO PRN (09:13)
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
[2021-07-02 09:27] LABS: Basophils % (A) 0 %; Eosinophils # (A) 0.1 k/uL (0-0.7); Eosinophils % (A) 1 %; HGB 14.7 gm/dL (13.0-17.5); Lymphocytes # (A) 0.9 k/uL (1.0-4.8); Lymphocytes % (A) 8 %; MCH 30.5 pg (25.0-35.0); MCHC 32.8 g/dL (31.0-37.0); MCV 92.8 fL (80.0-100.0); Mean Platelet Volume 7.7; Monocytes # (A) 0.6 k/uL (0-1.0); Monocytes % (A) 5 %; Neutrophils # (A) 9.9 k/uL (1.3-7.7); Neutrophils % (A) 85 %; Platelet Count 283 k/uL (150-450); RBC 4.84 m/uL (4.30-5.90); RDW 14.5 % (11.5-15.5); WBC 11.8 k/uL (3.8-10.6)
[2021-07-02 09:39] LABS: ALT 18 U/L (4-49); African American GFR (CKD) >90 (>60 ml/min/1.73 sqM); Albumin 4.1 g/dL (3.5-5.0); Anion Gap 11 mmol/L; Blood Urea Nitrogen 18 mg/dL (9-20); Carbon Dioxide 22 mmol/L (22-30); Chloride 104 mmol/L (98-107); Glucose 94 mg/dL (74-99); Non-African American GFR(CKD) >90 (>60 ml/min/1.73 sqM); Sodium 137 mmol/L (137-145); Total Bilirubin 1.1 mg/dL (0.2-1.3); Total Protein 7.5 g/dL (6.3-8.2)
[2021-07-02 09:41] LABS: INR 2.2 (<1.2); Partial Thromboplastin Time 36.3 sec (22.0-30.0); Prothrombin Time 21.8 sec (9.0-12.0)
[2021-07-02] MEDS: SODIUM CHLORIDE 0.9% 1,000 ML IV SCH ×2 (09:42→17:43)
[2021-07-02 09:48] LABS: Potassium 4.2 mmol/L (3.5-5.1)
[2021-07-02 09:49] LABS: AST 36 U/L (17-59); Alkaline Phosphatase 98 U/L (38-126)
[2021-07-02] MEDS ORDERED: ALPRAZolam 0.25 MG TAB PO PRN (14:40)
[2021-07-02] MEDS ORDERED: PANTOPRAZOLE 40 MG TABLET PO PRN (14:40)
[2021-07-02] MEDS: KETOROLAC 0.5% OPHTH DROPS 5 ML BTL LEFT EYE SCH ×3 (15:28→22:16)
[2021-07-02] MEDS: prednisoLONE ACETATE 1% OPHTH DROPS 5 ML BTL LEFT EYE SCH ×2 (17:38→22:16)
[2021-07-02 18:09] LABS: Appearance,Urine Clear (Clear); Bacteria,Urine Rare /hpf; Bilirubin,Urine Negative (Negative); Blood,Urine Negative (Negative); Color,Urine Yellow; Glucose,Urine (UA) Negative (Negative); Ketones,Urine Negative (Negative); Leukocyte Esterase,Urine Moderate (Negative); Mucus,Urine Rare /hpf; Nitrite,Urine Negative (Negative); PH, Urine 6.5 (5.0-8.0); Protein,Urine Negative (Negative); RBC,Urine 1 /hpf (0-5); Specific Gravity,Urine 1.015 (1.001-1.035); Squamous Epithelial Cell,Urine <1 /hpf (0-4); Urobilinogen,Urine <2.0 mg/dL (<2.0); WBC,Urine 16 /hpf (0-5)
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
[2021-07-02] MEDS: VANCOMYCIN 1,250 MG in SODIUM CHLORIDE 0.9% 250 ML IVPB SCH (19:40)
[2021-07-02] MEDS ORDERED: WARFARIN 7.5 MG TAB PO ONE (21:00)
[2021-07-03] MEDS: VANCOMYCIN 1,250 MG in SODIUM CHLORIDE 0.9% 250 ML IVPB SCH ×3 (03:35→17:22)
[2021-07-03] MEDS: SODIUM CHLORIDE 0.9% 1,000 ML IV SCH ×2 (04:14→17:22)
[2021-07-03] MEDS: prednisoLONE ACETATE 1% OPHTH DROPS 5 ML BTL LEFT EYE SCH ×4 (07:29→21:38)
[2021-07-03] MEDS: KETOROLAC 0.5% OPHTH DROPS 5 ML BTL LEFT EYE SCH ×4 (07:29→21:38)
[2021-07-03 09:24] LABS: Basophils # (A) 0.04 X 10*3/uL (0.00-0.10); Basophils % (A) 0.4 %; Eosinophils # (A) 0.09 X 10*3/uL (0.04-0.35); HCT 40.6 % (39.6-50.0); HGB 12.8 g/dL (13.0-17.0); Lymphocytes # (A) 1.39 X 10*3/uL (0.90-5.00); Lymphocytes % (A) 14.8 %; MCH 29.2 pg (27.0-32.0); MCHC 31.5 g/dL (32.0-37.0); MCV 92.7 fL (80.0-97.0); Mean Platelet Volume 9.9 fL (9.5-12.2); Monocytes # (A) 1.04 X 10*3/uL (0.20-1.00); Neutrophils # (A) 6.79 X 10*3/uL (1.80-7.70); Neutrophils % (A) 72.1 %; Platelet Count 245 X 10*3/uL (140-440); RBC 4.38 X 10*6/uL (4.40-5.60); RDW 14.9 % (11.5-14.5); WBC 9.42 X 10*3/uL (4.50-10.00)
[2021-07-03] MEDS: SYMBICORT 80-4.5 MCG INHALER INHALATION SCH ×2 (09:30→21:19)
[2021-07-03 09:58] LABS: INR 2.21 (0.90-1.11)
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
[2021-07-03 10:48] VITALS: BMI 20.5
[2021-07-03 10:58] LABS: African American GFR (CKD) 128.1 (60.0-200.0); Anion Gap 13.8 mmol/L (10.00-18.00); BUN/Creat Ratio 22.6 Ratio (12.00-20.00); Blood Urea Nitrogen 11.3 mg/dL (9.0-27.0); Calcium 8.4 mg/dL (8.7-10.3); Carbon Dioxide 19.2 mmol/L (20.0-27.5); Non-African American GFR(CKD) 110.6 (60.0-200.0); Potassium 4.1 mmol/L (3.5-5.5)
[2021-07-03] MEDS ORDERED: WARFARIN 5 MG TAB PO ONE (18:00)
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
[2021-07-03] MEDS: HEPARIN SODIUM,PORCINE/PF 5,000 UNIT/0.5 ML SYRINGE SQ SCH (21:39)
--- NOTE | 2021-07-03 23:38 | PN ---
PROGRESS NOTE DATE OF SERVICE: 07/03/2021 REASON FOR FOLLOWUP: Right gluteal cellulitis and wound infection. INTERVAL HISTORY: Patient is afebrile. The patient is feeling better. Breathing comfortably. No chest pain, shortness of breath or cough. No abdominal pain. Overall swelling and redness of the right has been decreased. PHYSICAL EXAMINATION: Blood pressure 100/65, pulse of 73, temperature 98.1. He is 99% on room air. General description is an elderly male lying in bed in no distress. Respiratory system: Unlabored breathing, clear to auscultation anteriorly. Heart S1, S2. Regular rhythm abdomen: Right hip/gluteal area swelling, and redness has slightly decreased. LABS: Hemoglobin is 12.8, white count 9.2, creatinine 0.5. Cultures are currently pending. DIAGNOSTIC IMPRESSION AND PLAN: Patient with right hip/gluteal area wound infection with secondary cellulitis. Cultures are currently pending. Patient responded vancomycin to continue with discharge antibiotic on the basis of culture. Continue with supportive care. MMODL / IJN: [id number] /
[2021-07-04] MEDS: VANCOMYCIN 1,250 MG in SODIUM CHLORIDE 0.9% 250 ML IVPB SCH ×2 (01:37→10:55)
[2021-07-04] MEDS: prednisoLONE ACETATE 1% OPHTH DROPS 5 ML BTL LEFT EYE SCH ×4 (07:13→21:02)
[2021-07-04] MEDS: KETOROLAC 0.5% OPHTH DROPS 5 ML BTL LEFT EYE SCH ×4 (07:13→21:02)
[2021-07-04] MEDS: HEPARIN SODIUM,PORCINE/PF 5,000 UNIT/0.5 ML SYRINGE SQ SCH ×2 (07:16→21:03)
[2021-07-04] MEDS: SYMBICORT 80-4.5 MCG INHALER INHALATION SCH ×2 (08:40→21:33)
[2021-07-04] MEDS ORDERED: VANCOMYCIN TROUGH DUE 1 EACH MISC MISCELLANE ONE (09:00)
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
[2021-07-04 11:24] LABS: INR 2.2 (<1.2); Prothrombin Time 21.2 sec (9.0-12.0)
[2021-07-04] MEDS: SODIUM CHLORIDE 0.9% 1,000 ML IV SCH (13:28)
--- NOTE | 2021-07-04 17:51 | PN ---
PROGRESS NOTE DATE OF SERVICE: 07/04/2021 REASON FOR FOLLOWUP: Right gluteal/hip area MRSA wound infection. INTERVAL HISTORY: Patient is afebrile. The patient is feeling better. Breathing comfortably. The patient denies having any chest pain, shortness of breath or cough. No abdominal pain. No diarrhea. PHYSICAL EXAMINATION: Blood pressure 101/70 with a pulse of 70, temperature 98.4. He is 100% on room air. General description is an elderly male lying in bed in no distress. Respiratory system: Unlabored breathing, clear to auscultation anteriorly. Heart S1, S2. Regular rate and rhythm. Abdomen soft, no tenderness. Right hip/gluteal area swelling, redness has decreased. No drainage. LABS: Hemoglobin is 12.8, white count of 9.42, creatinine 0.5. DIAGNOSTIC IMPRESSION AND PLAN: Patient with right hip/pelvic area abscess and cellulitis and wound infection with no evidence of any abscess. The patient seems to be clinically responding to vancomycin to continue, will need a PICC line for outpatient antibiotic therapy. Local care to continue as ordered and monitor clinical course closely. MMODL / IJN: [id number] /
[2021-07-04] MEDS ORDERED: WARFARIN 7.5 MG TAB PO ONE (18:00)
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
[2021-07-05] MEDS: VANCOMYCIN 1,250 MG in SODIUM CHLORIDE 0.9% 250 ML IVPB SCH ×2 (00:19→12:25)
[2021-07-05 04:14] LABS: INR 2.2 (<1.2); Prothrombin Time 21.4 sec (9.0-12.0)
[2021-07-05] MEDS: SODIUM CHLORIDE 0.9% 1,000 ML IV SCH ×2 (07:57→22:30)
[2021-07-05] MEDS: prednisoLONE ACETATE 1% OPHTH DROPS 5 ML BTL LEFT EYE SCH ×4 (08:05→22:35)
[2021-07-05] MEDS: KETOROLAC 0.5% OPHTH DROPS 5 ML BTL LEFT EYE SCH ×4 (08:05→22:35)
[2021-07-05] MEDS: HEPARIN SODIUM,PORCINE/PF 5,000 UNIT/0.5 ML SYRINGE SQ SCH ×2 (08:05→17:47)
[2021-07-05] MEDS: SYMBICORT 80-4.5 MCG INHALER INHALATION SCH ×2 (08:31→19:59)
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
[2021-07-05] MEDS ORDERED: WARFARIN 7.5 MG TAB PO ONE (18:00)
--- NOTE | 2021-07-05 23:13 | PN ---
PROGRESS NOTE DATE OF SERVICE: 07/05/2021 REASON FOR FOLLOWUP: Right gluteal/hip area abscess and cellulitis, MRSA. INTERVAL HISTORY: The patient is afebrile. The patient is breathing comfortably. The patient denies having any chest pain, shortness of breath or cough. No abdominal pain or any worsening pain to the right hip/gluteal area. PHYSICAL EXAMINATION: Blood pressure 117/73 with a pulse of 69, temperature 97.3. He is 97% on room air. General description is an elderly male lying in bed in no distress. Respiratory system: Unlabored breathing. Clear to auscultation anteriorly. Heart S1, S2. Regular rate and rhythm. Abdomen soft, no tenderness. Right gluteal area swelling and redness slightly decreased. LABS: INR is .2, creatinine 0.5. DIAGNOSTIC IMPRESSION AND PLAN: Patient with a right hip/gluteal area abscess and cellulitis with no evidence of any abscess on the CT. Patient is on vancomycin. He will need a PICC line for at least 2 weeks of IV vancomycin, Pharmacy to dose, and close outpatient followup. MMODL / IJN: [id number] /
[2021-07-06] MEDS: VANCOMYCIN 1,250 MG in SODIUM CHLORIDE 0.9% 250 ML IVPB SCH ×2 (00:31→12:38)
[2021-07-06] MEDS: SYMBICORT 80-4.5 MCG INHALER INHALATION SCH (08:03)
[2021-07-06 08:18] VITALS: RESP 16
[2021-07-06] MEDS: KETOROLAC 0.5% OPHTH DROPS 5 ML BTL LEFT EYE SCH ×2 (09:48→14:07)
[2021-07-06] MEDS: prednisoLONE ACETATE 1% OPHTH DROPS 5 ML BTL LEFT EYE SCH ×2 (09:48→14:06)
[2021-07-06] MEDS: HEPARIN SODIUM,PORCINE/PF 5,000 UNIT/0.5 ML SYRINGE SQ SCH (09:50)
[2021-07-06] MEDS ORDERED: LIDOCAINE 1% INJ 10MG/ML (20 ML MDV) SQ ONE (10:26)
[2021-07-06 11:58] LABS: African American GFR (CKD) >90 (>60 ml/min/1.73 sqM); Anion Gap 6 mmol/L; Blood Urea Nitrogen 9 mg/dL (9-20); Calcium 8.9 mg/dL (8.4-10.2); Carbon Dioxide 29 mmol/L (22-30); Chloride 109 mmol/L (98-107); Glucose 101 mg/dL (74-99); Non-African American GFR(CKD) >90 (>60 ml/min/1.73 sqM); Potassium 3.8 mmol/L (3.5-5.1); Sodium 144 mmol/L (137-145)
[2021-07-06 12:01] LABS: INR 1.8 (<1.2); Prothrombin Time 17.8 sec (9.0-12.0)
[2021-07-06] MEDS: SODIUM CHLORIDE 0.9% 1,000 ML IV SCH (12:38)
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
--- NOTE | 2021-07-06 13:20 | PN ---
PROGRESS NOTE DATE OF SERVICE: 07/06/2021 REASON FOR FOLLOWUP: Right hip and gluteal area cellulitis and abscess. INTERVAL HISTORY: The patient is afebrile. The patient is breathing comfortably. Denies any chest pain, shortness of breath, no cough, no abdominal pain, no worsening pain to the right gluteal area. PHYSICAL EXAMINATION: Blood pressure 130/82 with a pulse of 80, temperature 98.1. He is 95% on room air. General description is an elderly male lying in bed in no distress. Respiratory system: Unlabored breathing, clear to auscultation anteriorly. Heart S1, S2. Regular rate and rhythm. Abdomen soft, no tenderness. Right gluteal area is currently dressed. No obvious drainage on the dressing. LABS: Creatinine 0.58. DIAGNOSTIC IMPRESSION AND PLAN: Patient with right gluteal/hip area wound infection. Culture has been positive for MRSA. Plan is for vancomycin, pharmacy to dose for 2 weeks. Local wound care with dry Aquacel dressing. Follow up in the [facility] next week. MMODL / IJN: [id number] /
[2021-07-06 17:41] VITALS: BP 106/62; PULSE 73; TEMP 98.2
[2021-07-06] MEDS ORDERED: WARFARIN 7.5 MG TAB PO ONE (18:00)
--- NOTE | 2021-07-07 09:44 | IR ---
PICC LINE PLACEMENT: HISTORY: Infection requiring long-term antibiotic therapy PROCEDURE: Ultrasound and fluoroscopic guidance of PICC line placement. COMPLICATIONS: None ANESTHESIA: 1. 1% Lidocaine locally. FINDINGS/TECHNIQUE: The procedure was explained to the patient. The risks, complications, benefits and alternatives were discussed and any questions were answered. Informed consent was obtained. The patient was placed supine on the fluoroscopic table and prepped and draped in the usual sterile fash ion. Utilizing a 21 gauge needle and sonographic and fluoroscopic guidance, access in the left basi lic vein was achieved and there is placement of a 0.018 guidewire. The vein is patent. A 4-F sheath was placed over the guidewire. The guidewire and dilator were removed and a 4-F. PICC line was plac ed through the sheath with the tip at the level of the SVC. The sheath was removed, the catheter was flushed and sutured into position. The patient was stable throughout the procedure and remained sta ble upon discharge from the Department of Radiology. The vein puncture was patent under ultrasound. A ambrose scale image was obtained to document patency of the vein punctured. All elements of the maximal barrier technique were utilized. FLUOROSCOPY TIME: 0.2 minutes of fluoroscopy and one image submitted IMPRESSION: Successful PICC line placement under ultrasound and fluoroscopic guidance.
== END 2021-07-06 16:47 | disposition home health service (06) | DRG 593 ==
LOC: EC 08:13 → 4SSUR 09:13
PROVIDERS: ADMIT Internal Medicine; ATTEND Internal Medicine
PROC: 02HV33Z Insertion of Infusion Device into Superior Vena Cava, Percutaneous Approach (ICD-10-PCS; principal; 2021-07-06 07:30)
DX: L89.212 Pressure ulcer of right hip, stage 2 (principal); L03.317 Cellulitis of buttock; E44.1 Mild protein-calorie malnutrition; G82.20 Paraplegia, unspecified; S71.001A Unspecified open wound, right hip, initial encounter; B95.62 Methicillin resistant Staphylococcus aureus infection as the cause of diseases classified elsewhere; Z68.20 Body mass index [BMI] 20.0-20.9, adult; J44.9 Chronic obstructive pulmonary disease, unspecified; K21.9 Gastro-esophageal reflux disease without esophagitis; L89.152 Pressure ulcer of sacral region, stage 2; S24.102S Unspecified injury at T2-T6 level of thoracic spinal cord, sequela; V89.2XXS Person injured in unspecified motor-vehicle accident, traffic, sequela; Z20.822 Contact with and (suspected) exposure to COVID-19; Z79.01 Long term (current) use of anticoagulants; Z79.2 Long term (current) use of antibiotics; Z79.51 Long term (current) use of inhaled steroids; Z80.41 Family history of malignant neoplasm of ovary; Z82.5 Family history of asthma and other chronic lower respiratory diseases; Z86.14 Personal history of Methicillin resistant Staphylococcus aureus infection; Z86.711 Personal history of pulmonary embolism; Z86.718 Personal history of other venous thrombosis and embolism; Z87.01 Personal history of pneumonia (recurrent); Z87.891 Personal history of nicotine dependence; Z90.49 Acquired absence of other specified parts of digestive tract
CPT/HCPCS: 36415; 36573; 72193; 80048; 80053; 80202; 81001; 83605; 85025; 85610; 85730; 87040; 87070; 87077; 87186; 87205; 87635; 94640; 96374; 99284